=== PATIENT | female | born 1995 ===

== ENCOUNTER 2020-07-19 12:26 | Emergency (ER) | payer SELFPAY ==
[~2020-07-19] VITALS: Ht 162.6 cm; Wt 65.3 kg
[2020-07-19 12:48] VITALS: BP 107/72
--- NOTE | 2020-07-19 13:24 | NUR ---
[employer]IDE [employer]: PT AMBULATORY TO ROOM FROM [facility]
--- NOTE | 2020-07-19 13:35 | NUR ---
pt signed ama paper and amb to exit.
== END 2020-07-19 13:37 | disposition left against medical advice (07) ==
LOC: ED 13:35
DX: R20.2 Paresthesia of skin (principal)
CPT/HCPCS: 99281